=== PATIENT | female | born 1955 | race Caucasian/White ===

== ENCOUNTER 2025-02-01 17:47 | Observation (INO) | payer SELFPAY ==
[2025-02-01] VITALS (7 sets, daily range): BP systolic 109–151; BP diastolic 52–71; PULSE 54–104; RESP 12–19; TEMP 36.6–37; O2SAT 91–100; BMI 33.0
--- NOTE | ~2025-02-01 | CT_ITS ---
Non-contrast Head CT History: Seizure Technique: Axial non-contrast imaging of the brain was performed. Dose reduction technique was used on this scan by utilizing automated exposure control and iterative reconstruction technique. The dose -length product (DLP) was 681.00 mGy-cm. Findings: There is no evidence of intracranial hemorrhage, mass lesion, or acute infarct. There is d iffuse hypodensity throughout the periventricular white matter bilaterally. The ventricles and subar achnoid spaces are normal in size. The calvarium appears normal. The visualized paranasal sinuses a nd mastoid air cells are clear. Left phthisis bulbi noted. Impression: Diffuse chronic appearing white matter disease, likely severe chronic microvascular ischemic change. No acute abnormality evident. Reviewed, dictated and finalized at location . Impression: Diffuse chronic appearing white matter disease, likely severe chronic microvasc ular ischemic change. No acute abnormality evident.
--- NOTE | ~2025-02-01 | XR_ITS ---
Portable chest x-ray Comparison: None Clinical History: Seizure Findings: There is hazy airspace disease left lung base. Right lung clear. Cardiomediastinal silhou ette is enlarged. Bones and soft tissues are unremarkable. Impression: Left basilar atelectasis/edema versus pneumonia. Correlate clinically. Cardiomegaly. Reviewed, dictated and finalized at [facility]. Impression: Left basilar atelectasis/edema versus pneumonia. Correlate clinically. Cardiomegaly.
--- NOTE | 2025-02-01 17:51 | ECG_ITS ---
Test Date: 2025-02-01 18:01:38 Measurements Intervals [place] Rate: 86 P: -27 NM: 208 QRS: 23 QRSD: 118 T: 37 QT: 395 QTc: 473 Interpretive Statements SINUS RHYTHM MODERATE INTRAVENTRICULAR CONDUCTION DELAY [105+ ms QRS DURATION, 80+ ms Q/S IN V1/V2, NO Q AND 60+ ms R IN I/aVL/V5/V6] NONSPECIFIC ST & T-WAVE ABNORMALITY ABNORMAL ECG COMPARED WITH EARLIER TODAY NO DIFFERENCE Electronically Signed On 02-02-2025 08:11:02 CDT by Andrew Block M.D.
[2025-02-01] MEDS: levETIRAcetam 1500MG/NACL100ML 1,500 MG/100 ML BAG 400 MG IVPB (17:54)
[2025-02-01] MEDS: SODIUM CHLORIDE 0.9% IV 1,000 ML 999 ML IV CONT ×2 (17:56→20:44)
--- NOTE | 2025-02-01 17:59 | ECG_ITS ---
Test Date: 2025-02-01 17:48:51 Measurements Intervals [place] Rate: 90 P: 41 [place]: 209 QRS: 22 QRSD: 115 T: 58 QT: 397 QTc: 487 Interpretive Statements SINUS RHYTHM MODERATE INTRAVENTRICULAR CONDUCTION DELAY [105+ ms QRS DURATION, 80+ ms Q/S IN V1/V2, NO Q AND 60+ ms R IN I/aVL/V5/V6] NONSPECIFIC ST & T-WAVE ABNORMALITY ABNORMAL ECG No previous ECG available for comparison Electronically Signed On 02-02-2025 08:10:12 CDT by Andrew Block M.D.
[2025-02-01 18:09] LABS: Hematocrit 35.7 % (37.0-47.0); Hemoglobin 11.1 g/dL (12.0-15.0); Immature Granulocyte Percent A 0.6 % (0-0.5); Lymphocytes Absolute Auto 2.14 K/mm3 (0.9-3.2); Mean Corpuscular HGB Conc 31.1 g/dl (32-36); Mean Corpuscular Hemoglobin 28.2 pg (26-34); Mean Corpuscular Volume 90.8 fl (80-100); Nucleated Red Blood Cells Absolute Auto 0.000 K/mm3 (0.0-0.012); Nucleated Red Blood Cells Perc 0.0 % (0.0-0.2); Platelet Count Result 364 k/mm3 (150-375); Red Blood Count 3.93 M/mm3 (4.2-5.4); White Blood Count 6.6 K/mm3 (4.5-10.0)
[2025-02-01 18:19] LABS: Alanine Aminotransferase 33 U/L (6-35); Albumin Level 4.3 g/dL (3.5-5.1); Alkaline Phosphatase 54 U/L (38-126); Anion Gap 17 mmol/L (4-12); Aspartate Amino Transferase 40 U/L (14-36); Bilirubin,Total 0.3 mg/dL (0.2-1.3); Blood Urea Nitrogen 18 mg/dL (7-17); Calcium 9.0 mg/dL (8.4-10.2); Carbon Dioxide 17 mmol/L (22-30); Chloride 104 mmol/L (98-107); Estimated CRCL calculation 42 ml/min; Estimated Glomerular Filt Rate 46; Glucose 125 mg/dL (65-110); Lipase 120 U/L (23-300); Magnesium 1.9 mg/dL (1.6-2.3); Potassium 3.5 mmol/L (3.4-5.0); Sodium 138 mmol/L (137-145); Total Protein 7.1 g/dL (6.3-8.2)
--- NOTE | 2025-02-01 18:22 | ED.GENADULT ---
HPI - General Adult General Chief complaint: Seizure <Bryant Martinez MD - Last Filed: 02/01/25 19:05> Stated complaint: seizure <Bryant Martinez MD - Last Filed: 02/01/25 19:05> Time Seen by Provider: 02/01/25 17:50 <Bryant Martinez MD - Last Filed: 02/01/25 19:05> History of Present Illness HPI narrative: This is a 69-year-old female with history of seizures presenting for a seizure. Patient was at the [facility] for the last 3 days. She was visiting from [facility]. Patient is 10 taking her lamotrigine 200 mg b.i.d. as directed although she has not taken her nighttime dose today. She had a seizure while in the back of her car with her friends. EMS was called and she received 10 mg of IM Versed with and then 5 mg of IV Versed which eventually aborted her seizure. Patient is now sedated and cannot provide any information. Her friends are present and he stated she has not been using drugs or alcohol. She has been in her normal state of health with no illness. They have said that is been a very long weekend and they are all very tired. <Bryant Martinez MD - Last Filed: 02/01/25 19:05> Related Data Home medications: Home Medications ?Medication ?Instructions ?Recorded ?Confirmed ?Last Taken ?Type lamotrigine 200 mg tablet 200 mg PO BID 02/01/25 02/01/25 01/31/25 History (Lamictal) <Bryant Martinez MD - Last Filed: 02/01/25 19:05> Allergies/adverse reactions: Allergies Allergy/AdvReac Type Severity Reaction Status Date / Time No Known Allergies Allergy Verified 02/01/25 17:54 <Bryant Martinez MD - Last Filed: 02/01/25 19:05> [facility] Past Medical History Medical History: Medical History Anxiety and depression Essential hypertension Seizure disorder <Bryant Martinez MD - Last Filed: 02/01/25 19:05> Surgical History Surgical History: Surgical History History of 3 sections History of laparoscopic cholecystectomy History of enucleation of left eyeball <Bryant Martinez MD - Last Filed: 02/01/25 19:05> Social History Social History: Social History (Updated 02/02/25 @ 01:48 by Greta Garcia DO) Social History: Patient lives in [facility] with her of 11 years. She raised 3 children. She is a retired food crops farm hand. She is a lifelong nonsmoker and has never drink alcohol to excess. She denies illicit substance use. Code status: Full code Surrogate decision maker: Smoking status: Never smoker Second hand tobacco smoke exposure: No Alcohol intake: never Substance use: never Substance use type: does not use Do You Feel Safe in your Home?: Yes Lack of Transportation: No Lack of Food: Never True Current Housing: I Have Housing Concerned About Future Housing: No Difficulty Paying Gas/Electric Bills: No Difficulty Paying for Meds: No Currently Unemployed: No Education: Decline to Answer Difficulty w/ Childcare or Family Care: No Spiritual care concerns: No <Bryant Martinez MD - Last Filed: 02/01/25 19:05> Exam Narrative: APPEARANCE: Response to pain Head: atraumatic. EYES: EOMI, NOSE: Atraumatic NECK: Trachea midline RESPIRATORY: No increased rate of breathing CTAB CARDIOVASCULAR: RRR, no peripheral edema ABDOMINAL: Non-distended soft nontender MUSCULOSKELETAl: No obvious deformities NEURO: Sedated, moving for 4 extremities to pain SKIN:: Warm, dry. Normal color PSYCHIATRIC: Sedated <Bryant Martinez MD - Last Filed: 02/01/25 19:05> Course Course Emergency Course: Patient signed over pending admission to the hospitalist. Patient evaluated in doing well currently still sedated from her Versed doses but no seizure activity. She is responsive. Discussed the case with the hospitalist currently being covered by the midlevel provider Mariel who accepted her to a telemetry monitored bed. Admission orders placed. <Scot Maher MD - Last Filed: 02/02/25 04:24> Vital Signs Vital signs: Vital Signs Pulse Rate 97 02/01/25 17:51 Respiratory Rate 19 02/01/25 17:51 Blood Pressure 109/60 02/01/25 17:51 Pulse Oximetry 91 02/01/25 17:51 Temperature 37.0 C 02/01/25 23:00 Pulse Rate 61 02/01/25 23:00 Respiratory Rate 14 02/01/25 23:00 Blood Pressure 123/58 L 02/01/25 23:00 Pulse Oximetry 96 02/01/25 23:00 Oxygen Delivery Room Air 02/01/25 17:52 <Bryant Martinez MD - Last Filed: 02/01/25 19:05> Vital Signs Pulse Rate 97 02/01/25 17:51 Respiratory Rate 19 02/01/25 17:51 Blood Pressure 109/60 02/01/25 17:51 Pulse Oximetry 91 02/01/25 17:51 Temperature 37.0 C 02/01/25 23:00 Pulse Rate 61 02/01/25 23:00 Respiratory Rate 14 02/01/25 23:00 Blood Pressure 123/58 L 02/01/25 23:00 Pulse Oximetry 96 02/01/25 23:00 Oxygen Delivery Room Air 02/01/25 17:52 <Scot Maher MD - Last Filed: 02/02/25 04:24> Medical Decision Making MDM Narrative Medical decision making narrative: -Course: 69-year-old female with history of seizures presenting for a seizure. She received total of 15 mg Versed from EMS. I expect the patient to be sedated for quite some time. Patient was given 1500 mg of Keppra and 1000ml normal saline. Workup significant for urinary tract infection she has been started on ceftriaxone. Patient will be placed in observation to give her time to metabolize the Versed and return to her baseline mental status. -DDX includes but is not limited to: Breakthrough seizure, medication noncompliance, physical exhaustion <Bryant Martinez MD - Last Filed: 02/01/25 19:05> Vital Signs Vital Signs: Vital Signs Pulse Rate 97 02/01/25 17:51 Respiratory Rate 19 02/01/25 17:51 Blood Pressure 109/60 02/01/25 17:51 Pulse Oximetry 91 02/01/25 17:51 Temperature 37.0 C 02/01/25 23:00 Pulse Rate 61 02/01/25 23:00 Respiratory Rate 14 02/01/25 23:00 Blood Pressure 123/58 L 02/01/25 23:00 Pulse Oximetry 96 02/01/25 23:00 Oxygen Delivery Room Air 02/01/25 17:52 <Bryant Martinez MD - Last Filed: 02/01/25 19:05> Vital Signs Pulse Rate 97 02/01/25 17:51 Respiratory Rate 19 02/01/25 17:51 Blood Pressure 109/60 02/01/25 17:51 Pulse Oximetry 91 02/01/25 17:51 Temperature 37.0 C 02/01/25 23:00 Pulse Rate 61 02/01/25 23:00 Respiratory Rate 14 02/01/25 23:00 Blood Pressure 123/58 L 02/01/25 23:00 Pulse Oximetry 96 02/01/25 23:00 Oxygen Delivery Room Air 02/01/25 17:52 <Scot Maher MD - Last Filed: 02/02/25 04:24> Lab Data Result diagrams: 02/01/25 17:59 02/01/25 17:59 <Bryant Martinez MD - Last Filed: 02/01/25 19:05> Labs: Lab Results 02/01/25 02/01/25 02/01/25 Range/Units 17:54 17:59 18:02 WBC 6.6 (4.5-10.0) K/mm3 RBC 3.93 L (4.2-5.4) M/mm3 Hgb 11.1 L (12.0-15.0) g/dL Hct 35.7 L (37.0-47.0) % MCV 90.8 (80-100) fl MCH 28.2 (26-34) pg MCHC 31.1 L (32-36) g/dl RDW 13.7 (11.5-14.5) % Plt Count 364 (150-375) k/mm3 MPV 8.5 (7.4-10.4) fl Immature Gran % (Auto) 0.6 H (0-0.5) % Neut % (Auto) 57.2 (45.5-73.1) % Lymph % (Auto) 32.4 (18.3-44.2) % Teller % (Auto) 6.7 (2.6-8.5) % Eos % (Auto) 2.0 (0-4.4) % Baso % (Auto) 1.1 (0.2-1.2) % Lymph # (Auto) 2.14 (0.9-3.2) K/mm3 Teller # (Auto) 0.4 (0.1-0.6) K/mm3 Eos # (Auto) 0.1 (0-0.3) K/mm3 Baso # (Auto) 0.1 (0.0-0.1) K/mm3 Abs Immat Gran (auto) 0.04 H (0.00-0.031) K/mm3 Absolute Neuts (auto) 3.8 (1.3-6.7) K/mm3 Absolute Nucleated RBC 0.000 (0.0-0.012) K/mm3 Nucleated RBC % 0.0 (0.0-0.2) % Sodium 138 (137-145) mmol/L Potassium 3.5 (3.4-5.0) mmol/L Chloride 104 (98-107) mmol/L Carbon Dioxide 17 L (22-30) mmol/L Anion Gap 17 H (4-12) mmol/L BUN 18 H (7-17) mg/dL Creatinine 1.17 H (0.7-1.0) mg/dL Estim Creat Clear Calc 42 ml/min Estimated GFR 46 L (59 - ) Glucose 125 H (65-110) mg/dL POC Capillary Glucose 136 H (65-105) mg/dl Lactic Acid 6.4 H* (0.7-2.0) mmol/L Calcium 9.0 (8.4-10.2) mg/dL Magnesium 1.9 (1.6-2.3) mg/dL Total Bilirubin 0.3 (0.2-1.3) mg/dL AST 40 H (14-36) U/L ALT 33 (6-35) U/L Alkaline Phosphatase 54 (38-126) U/L Total Protein 7.1 (6.3-8.2) g/dL Albumin 4.3 (3.5-5.1) g/dL Lipase 120 (23-300) U/L Urine Color Dark yellow (Yellow) Urine Appearance Turbid H (Clear) Urine pH 5.0 (5.0-9.0) Ur Specific [place] 1.010 (1.001-1.035) Urine Protein 1+ H (Negative) mg/dL Urine Glucose (UA) Negative (Negative) mg/dL Urine Ketones Negative (Negative) mg/dL Ur Blood (Man) Trace (Negative) Urine Nitrate Positive H (Negative) Urine Bilirubin Negative (Negative) Urine Urobilinogen 0.2 (<2.0) mg/dL Add Ur Microanalysis Reviewed Leukocyte Esterase Rfl 3+ H (Negative) GURINDRE/UL Urine RBC 0-2 (0-2) /hpf Urine WBC >100 H (0-3) /hpf Urine WBC Clumps Present H (None) /HPF Ur Squamous Epith Cells None seen (Few) /hpf Urine Bacteria Rare /hpf Urine Casts 6-10 Urine Opiates Screen Negative (Negative) Urine Methadone Screen Negative (Negative) Ur Barbiturates Screen Negative (Negative) Ur Phencyclidine Scrn Negative (Negative) Ur Amphetamine Screen Negative (Negative) U Benzodiazepines Scrn Positive A (Negative) Urine Cocaine Screen Negative (Negative) U Cannabinoids Screen Negative (Negative) Ethyl Alcohol < 10 (<10) mg/dL Influenza A (RT-PCR) Negative (Negative) Influenza B (RT-PCR) Negative (Negative) RSV (RT-PCR) Negative (Negative) SARS-CoV-2 RNA (RT-PCR) Negative (Negative) <Bryant Martinez MD - Last Filed: 02/01/25 19:05> Lab Results 02/01/25 02/01/25 02/01/25 Range/Units 17:54 17:59 18:02 WBC 6.6 (4.5-10.0) K/mm3 RBC 3.93 L (4.2-5.4) M/mm3 Hgb 11.1 L (12.0-15.0) g/dL Hct 35.7 L (37.0-47.0) % MCV 90.8 (80-100) fl MCH 28.2 (26-34) pg MCHC 31.1 L (32-36) g/dl RDW 13.7 (11.5-14.5) % Plt Count 364 (150-375) k/mm3 MPV 8.5 (7.4-10.4) fl Immature Gran % (Auto) 0.6 H (0-0.5) % Neut % (Auto) 57.2 (45.5-73.1) % Lymph % (Auto) 32.4 (18.3-44.2) % Teller % (Auto) 6.7 (2.6-8.5) % Eos % (Auto) 2.0 (0-4.4) % Baso % (Auto) 1.1 (0.2-1.2) % Lymph # (Auto) 2.14 (0.9-3.2) K/mm3 Teller # (Auto) 0.4 (0.1-0.6) K/mm3 Eos # (Auto) 0.1 (0-0.3) K/mm3 Baso # (Auto) 0.1 (0.0-0.1) K/mm3 Abs Immat Gran (auto) 0.04 H (0.00-0.031) K/mm3 Absolute Neuts (auto) 3.8 (1.3-6.7) K/mm3 Absolute Nucleated RBC 0.000 (0.0-0.012) K/mm3 Nucleated RBC % 0.0 (0.0-0.2) % Sodium 138 (137-145) mmol/L Potassium 3.5 (3.4-5.0) mmol/L Chloride 104 (98-107) mmol/L Carbon Dioxide 17 L (22-30) mmol/L Anion Gap 17 H (4-12) mmol/L BUN 18 H (7-17) mg/dL Creatinine 1.17 H (0.7-1.0) mg/dL Estim Creat Clear Calc 42 ml/min Estimated GFR 46 L (59 - ) Glucose 125 H (65-110) mg/dL POC Capillary Glucose 136 H (65-105) mg/dl Lactic Acid 6.4 H* (0.7-2.0) mmol/L Calcium 9.0 (8.4-10.2) mg/dL Magnesium 1.9 (1.6-2.3) mg/dL Total Bilirubin 0.3 (0.2-1.3) mg/dL AST 40 H (14-36) U/L ALT 33 (6-35) U/L Alkaline Phosphatase 54 (38-126) U/L Total Protein 7.1 (6.3-8.2) g/dL Albumin 4.3 (3.5-5.1) g/dL Lipase 120 (23-300) U/L Urine Color Dark yellow (Yellow) Urine Appearance Turbid H (Clear) Urine pH 5.0 (5.0-9.0) Ur Specific [place] 1.010 (1.001-1.035) Urine Protein 1+ H (Negative) mg/dL Urine Glucose (UA) Negative (Negative) mg/dL Urine Ketones Negative (Negative) mg/dL Ur Blood (Man) Trace (Negative) Urine Nitrate Positive H (Negative) Urine Bilirubin Negative (Negative) Urine Urobilinogen 0.2 (<2.0) mg/dL Add Ur Microanalysis Reviewed Leukocyte Esterase Rfl 3+ H (Negative) GURINDER/UL Urine RBC 0-2 (0-2) /hpf Urine WBC >100 H (0-3) /hpf Urine WBC Clumps Present H (None) /HPF Ur Squamous Epith Cells None seen (Few) /hpf Urine Bacteria Rare /hpf Urine Casts 6-10 Urine Opiates Screen Negative (Negative) Urine Methadone Screen Negative (Negative) Ur Barbiturates Screen Negative (Negative) Ur Phencyclidine Scrn Negative (Negative) Ur Amphetamine Screen Negative (Negative) U Benzodiazepines Scrn Positive A (Negative) Urine Cocaine Screen Negative (Negative) U Cannabinoids Screen Negative (Negative) Ethyl Alcohol < 10 (<10) mg/dL Influenza A (RT-PCR) Negative (Negative) Influenza B (RT-PCR) Negative (Negative) RSV (RT-PCR) Negative (Negative) SARS-CoV-2 RNA (RT-PCR) Negative (Negative) <Scot Maher MD - Last Filed: 02/02/25 04:24> Discharge Plan Discharge Clinical Impression: Breakthrough seizure, Acute UTI <Bryant Martinez MD - Last Filed: 02/01/25 19:05> Patient Disposition: Home <Bryant Martinez MD - Last Filed: 02/01/25 19:05> Condition: Stable <Bryant Martinez MD - Last Filed: 02/01/25 19:05>
[2025-02-01 18:30] LABS: Add Urine Microscopic? YES; Appearance Urine Turbid (Clear); Glucose Urine UA Negative (Negative); Leukocyte Esterase Ur 3+ LEU/UL (Negative); Need Manual Microscopic Reviewed; Nitrate Urine Positive (Negative); Specific Grav Ur 1.010 (1.001-1.035)
[2025-02-01 18:35] LABS: Cannabinoid Screen Urine Negative (Negative)
[2025-02-01 18:46] LABS: Influenza A QL RT-PCR Negative (Negative); Influenza B QL RT-PCR Negative (Negative); RSV RNA, RT-PCR Negative (Negative); SARS-CoV-2 RNA PCR Negative (Negative)
--- OUTSIDE RECORDS SUMMARY | 2025-02-01 19:38 | XMS_ITS | Continuity of Care Document ---
Author Organization [facility] Address [address] [place] [address] Phone Care Team Providers Care Dry Cleaning Attendant Name Role Phone Richard Rios MD, Rickey Unavailable Unavailabl e Allergies, Adverse Reactions, Alerts Substance Reaction Status Criticality No Known Allergies Active No Inform ation Medications Medication Instructions Dosage Effective Dates (start - stop) Status Comments Aptiom 800 mg tablet take 1 tablet by or al route every day 800 MG - Active Keppra 500 mg tablet take 1 tablet by or al route 2 times every day 500 MG - Active Procedures Procedure Date Med record copy admin Med record copy per page Advance Directives Directive Yes / No Effective Date File Name No Information Encounters Encounter Description Practice Location Reason(s) For Visit Diagnoses Date Provider [facility], [address] , [place], [address], tel:[phone] [facility] No Information Richard Lang. [address] , [place], [place], [id number], [place]. tel:[phone] [facility], [address] , [place], [address], [place] tel:[phone] [facility] Epilepsy, unspecified, not intractable, without status epilepticusAnt iconvulsant-in duced dizziness ^Side effects of treatment, initial encounter Richard Lang. [address] , [place], [place], [id number], [place]. tel:[phone] [facility], [address] [facility], [place], [address], tel:[phone] [facility] Epilepsy, unspecified, not intractable, without status epilepticusAnt iconvulsant-in duced dizziness ^Dizziness and giddiness Richard Lang. [address] [facility], [place], [place], [id number], [place]. tel:[phone] [facility], [address] [facility], [place], [place], [facility], tel:[phone] [facility] Epilepsy, unspecified, without mention of intractable epilepsy Richard Lang. [address] [place], [place], [address] [place] [address], . tel:[phone] [facility], [address] [facility], [place], [place], [facility], tel:[phone] [facility] Epilepsy, unspecified, without mention of intractable epilepsy Richard Lang. [address] [facility], [place], [place], [address] [place] [address], . tel:[phone] [facility], [facility] [address] [place], [place], [facility], tel:[phone] [facility] Epilepsy, unspecified, without mention of intractable epilepsy Jaymie Montenegro. [address] [facility], [address], [place], [place], [facility], . tel:[phone] Family History Family Member Type Diagnosis Age At Onset Problem (finding) Family history of seizu re disorder Problem (finding) Family history of Cance r Payers Payer name Insurance type Covered libertarian ID Authoriza tion(s) No Information Social History Type Description Quantity Date Captured Comments Sex Female Smoking Status No Information Chief Complaint And Reason For Visit No Information Plan Of Treatment Date Type Action Status Patient Education Seizure in Adults: Afte r Your Visit completed Patient Education Seizure in Adults: Afte r Your Visit completed History Of Present Illness Encounter Date Complaint History Of Prese nt Illness No Information Instructions Date Instruction Additional Infor mation No Information Assessments Type Assessment Date No Information
[2025-02-01] MEDS: cefTRIAXone 1 GM in SODIUM CHLORIDE 0.9% IV 50 ML 100 ML IVPB (19:43)
[2025-02-01] MEDS: LACTATED RINGERS 1,000 ML 125 ML IV CONT (20:49)
--- NOTE | 2025-02-01 22:37 | ADMGEN ---
This patient, Genie Elmore, was admitted to Medical Room 246-01 with a witnessed seizure, duration of 10-15 minutes. Patient/family oriented to hospital policies and general routines including ID bracelet, bed and alarms, visiting hours, pain management, procedures, bathroom and other care routines, personal items, smoking policy, room service/diet, and visiting hours. Information on how to activate the Rapid Response Team has been discussed. Patient/Family are encouraged to report perceived risks to care and to ask questions if they do not understand what they are told or what they should do.
--- NOTE | 2025-02-01 22:52 | PM.IMHP ---
H&P: HPI History of Present Illness Date/Time: 02/01/25 22:52 Chief Complaint: Seizure Narrative: 69-year-old female with a past medical history of seizure disorder who presented to the ER after having a witnessed seizure while riding in the back of the car. Patient was added L this convention for the past 3 days and is in the area visiting from [facility]. Patient takes lamotrigine 200 mg p.o. b.i.d. for seizures. EMS was called and patient received 10 mg of IM Versed and then an IV was placed after which time she received another 5 mg of IV Versed. On arrival to the ER the patient was sedated and could not provide any information. Patient has not been using any drugs and her friends denied patient drinking alcohol during their trip. Patient's alcohol level was negative in the ER and the patient's urine drug screen was only positive for benzodiazepines which she received in route to the hospital. The patient's friends report that they had had a very long weekend and they are all exhausted. The patient states that she does not know the names of her antihypertensives. At the time my evaluation she arouses easily to verbal stimuli but is not the best historian. She has had seizures since 1996. She had 1 seizure that was bad enough 1 time that she fell and poked her eye out with her home thumb nail. She denies any headaches, fevers, chills, cough, congestion or urinary symptoms at the time of my evaluation. The patient reported to nursing staff that she has been depressed recently. She has been having fleeting thoughts of self-harm but has no plan. She is aware that she is depressed but is not discuss this with her primary care provider. Source of information is patient who is a relatively poor historian and ER physician report/record and nursing report. No external records or past medical records available for my review. There is no contact information on the patient's family or friends available to provide any other history. EMS records are not yet in the system for my review. Review of Systems Review of Systems: Twelve point review of systems attempted but somewhat limited due to poor patient cooperation. [facility] Past Medical History Medical History Anxiety and depression Essential hypertension Seizure disorder Surgical History Surgical History History of 3 sections History of laparoscopic cholecystectomy History of enucleation of left eyeball Social History Social History (Updated 02/02/25 @ 01:48 by Greta Garcia DO) Social History: Patient lives in [facility] with her of 11 years. She raised 3 children. She is a retired hi low truck driver. She is a lifelong nonsmoker and has never drink alcohol to excess. She denies illicit substance use. Code status: Full code Surrogate decision maker: Smoking status: Never smoker Second hand tobacco smoke exposure: No Alcohol intake: never Substance use: never Substance use type: does not use Do You Feel Safe in your Home?: Yes Lack of Transportation: No Lack of Food: Never True Current Housing: I Have Housing Concerned About Future Housing: No Difficulty Paying Gas/Electric Bills: No Difficulty Paying for Meds: No Currently Unemployed: No Education: Decline to Answer Difficulty w/ Childcare or Family Care: No Spiritual care concerns: No Meds Home Medications and Allergies Home Medications ?Medication ?Instructions ?Recorded ?Confirmed ?Type lamotrigine 200 mg tablet 200 mg PO BID 02/01/25 02/01/25 History (Lamictal) Allergies Allergy/AdvReac Type Severity Reaction Status Date / Time No Known Allergies Allergy Verified 02/01/25 17:54 Vital Signs Vital Signs - 24 hr 02/01/25 17:51 02/01/25 17:52 02/01/25 17:56 Temperature Pulse Rate 97 104 H 95 Respiratory Rate 19 19 Blood Pressure 109/60 109/60 Pulse Oximetry 91 91 Oxygen Delivery Room Air 02/01/25 19:41 02/01/25 20:45 02/01/25 21:52 Temperature 97.8 F 98.4 F Pulse Rate 54 L 60 62 Respiratory Rate 12 13 Blood Pressure 146/70 H 151/52 H 112/71 Pulse Oximetry 100 97 Oxygen Delivery Exam Narrative: Weight 84.7 kg BMI 33.1 Const: Other: Appears older than stated age, well-developed well-nourished, no acute distress HENMT: Other: Edentulous upper and lower jaw, mucous membranes are tacky, no oral pharyngeal erythema, no evidence of oral injury, head is normocephalic atraumatic Eyes: Other: Right pupil is reactive and of normal size, no scleral icterus or conjunctival pallor, left eye is a prosthetic Neck: Other: No JVD, no lymphadenopathy Resp: Other: Clear to auscultation bilaterally, no increased work of breathing Cardio: Other: Regular rate, regular rhythm, 2+ bilateral radial pedal pulses GI: Other: Soft, nontender, nondistended, positive bowel sounds Skin: Other: No bruising, no pallor Neuro: Other: Easily arouses to verbal stimuli, alert and oriented to person, fact that she is in the hospital, year and name of the current president she thought the month was May. Speech is clear and fluent, cranial nerves 2-12 grossly intact. No gross motor deficits noted. Extrem: Other: No clubbing, cyanosis or edema Psych: Other: Flat affect, calm but not interested in providing information, poor insight H&P: Results Labs Labs: Laboratory Tests 02/01/25 17:59 02/01/25 17:59 02/01/25 02/01/25 02/01/25 17:54 17:59 18:02 WBC 6.6 RBC 3.93 L Hgb 11.1 L Hct 35.7 L MCV 90.8 MCH 28.2 MCHC 31.1 L RDW 13.7 Plt Count 364 MPV 8.5 Immature Gran % (Auto) 0.6 H Neut % (Auto) 57.2 Lymph % (Auto) 32.4 [place] % (Auto) 6.7 Eos % (Auto) 2.0 Baso % (Auto) 1.1 Lymph # (Auto) 2.14 [place] # (Auto) 0.4 Eos # (Auto) 0.1 Baso # (Auto) 0.1 Abs Immat Gran (auto) 0.04 H Absolute Neuts (auto) 3.8 Absolute Nucleated RBC 0.000 Nucleated RBC % 0.0 Sodium 138 Potassium 3.5 Chloride 104 Carbon Dioxide 17 L Anion Gap 17 H BUN 18 H Creatinine 1.17 H Estim Creat Clear Calc 42 Estimated GFR 46 L Glucose 125 H POC Capillary Glucose 136 H Lactic Acid 6.4 H* Calcium 9.0 Magnesium 1.9 Total Bilirubin 0.3 AST 40 H ALT 33 Alkaline Phosphatase 54 Total Protein 7.1 Albumin 4.3 Lipase 120 Urine Color Dark yellow Urine Appearance Turbid H Urine pH 5.0 Ur Specific [place] 1.010 Urine Protein 1+ H Urine Glucose (UA) Negative Urine Ketones Negative Ur Blood (Man) Trace Urine Nitrate Positive H Urine Bilirubin Negative Urine Urobilinogen 0.2 Add Ur Microanalysis Reviewed Leukocyte Esterase Rfl 3+ H Urine RBC 0-2 Urine WBC >100 H Urine WBC Clumps Present H Ur Squamous Epith Cells None seen Urine Bacteria Rare Urine Casts 6-10 Urine Opiates Screen Negative Urine Methadone Screen Negative Ur Barbiturates Screen Negative Ur Phencyclidine Scrn Negative Ur Amphetamine Screen Negative U Benzodiazepines Scrn Positive A Urine Cocaine Screen Negative U Cannabinoids Screen Negative Ethyl Alcohol < 10 Influenza A (RT-PCR) Negative Influenza B (RT-PCR) Negative RSV (RT-PCR) Negative SARS-CoV-2 RNA (RT-PCR) Negative 02/01/25 20:38 WBC RBC Hgb Hct MCV MCH MCHC RDW Plt Count MPV Immature Gran % (Auto) Neut % (Auto) Lymph % (Auto) [place] % (Auto) Eos % (Auto) Baso % (Auto) Lymph # (Auto) [place] # (Auto) Eos # (Auto) Baso # (Auto) Abs Immat Gran (auto) Absolute Neuts (auto) Absolute Nucleated RBC Nucleated RBC % Sodium Potassium Chloride Carbon Dioxide Anion Gap BUN Creatinine Estim Creat Clear Calc Estimated GFR Glucose POC Capillary Glucose Lactic Acid 1.3 Calcium Magnesium Total Bilirubin AST ALT Alkaline Phosphatase Total Protein Albumin Lipase Urine Color Urine Appearance Urine pH Ur Specific [place] Urine Protein Urine Glucose (UA) Urine Ketones Ur Blood (Man) Urine Nitrate Urine Bilirubin Urine Urobilinogen Add Ur Microanalysis Leukocyte Esterase Rfl Urine RBC Urine WBC Urine WBC Clumps Ur Squamous Epith Cells Urine Bacteria Urine Casts Urine Opiates Screen Urine Methadone Screen Ur Barbiturates Screen Ur Phencyclidine Scrn Ur Amphetamine Screen U Benzodiazepines Scrn Urine Cocaine Screen U Cannabinoids Screen Ethyl Alcohol Influenza A (RT-PCR) Influenza B (RT-PCR) RSV (RT-PCR) SARS-CoV-2 RNA (RT-PCR) Impressions Head CT 02/01/25 18:50 Impression: Diffuse chronic appearing white matter disease, likely severe chronic microvascular ischemic change. No acute abnormality evident. Chest X-Ray 02/01/25 19:09 Impression: Left basilar atelectasis/edema versus pneumonia. Correlate clinically. Cardiomegaly. EKG: Normal sinus rhythm rate 86, moderate intraventricular conduction delay, nonspecific ST and T-wave abnormality, QTC 473 All imaging and EKGs personally reviewed and interpreted. And unless stated otherwise agree with radiologic and cardiology interpretation. Assessment and Plan Assessment and plan (1) Breakthrough seizure: Code(s): G40.919 - Epilepsy, unspecified, intractable, without status epilepticus Status: Acute (2) Abnormal urinalysis: Code(s): R82.90 - Unspecified abnormal findings in urine Status: Acute (3) Acute kidney injury: Code(s): N17.9 - Acute kidney failure, unspecified Status: Acute (4) Major depressive disorder with current active episode: Qualifiers: Major depression recurrence: unspecified whether recurrent Major depression episode severity: moderate Qualified Code(s): F32.1 - Major depressive disorder, single episode, moderate Code(s): F32.9 - Major depressive disorder, single episode, unspecified Status: Acute Plan Patient had breakthrough seizure likely due to a missed dose of her seizure medication and complicated by decreased sleep during her recent travel. Will resume the patient's home lamotrigine with the 1st dose now. Patient was admitted for over-sedation following Versed use. Will monitor neuro status closely and patient has been placed on seizure precautions. Patient did have significant lactic acidosis that resolved after only 1 L fluid this is likely due her acute seizure. Patient does have an abnormal urinalysis but no evidence of fever and denied any acute urinary symptoms. This is been more likely to be asymptomatic bacteriuria. Will leave the patient on antibiotic therapy unti re-evaluation may be the patient would be more motivated to provide history in the morning when she is more awake. Will repeat CBC in a.m.. Patient denies history of prior kidney disease but creatinine is elevated. She may have some component of acute kidney injury. Patient received 1 L fluid bolus in the ER. Will given additional 1 L fluid bolus and continue normal saline 100 mL an hour for an additional L. Will follow with repeat BMP in a.m. and monitor urine output. Patient is having depressive symptoms with fleeting thoughts of suicide but she denies any active suicidal ideation at the moment or plan She would benefit from antidepressant although I am reluctant to start this in the acute setting since will not bili follow-up with her since she is not from the area. She does have a history of hypertension but does not know what her medications are currently she is currently normotensive. Will monitor routine vital signs. Patient has been admitted as observation status. MEDICAL DECISION MAKING NARRATIVE -Spoke with the ED provider in detail regarding patient's evaluation, workup and management -Patient seen and examined at bedside -Collaborated with patient's nurse at the bedside in detail and addressed all concerns -Labs, electrolytes, radiology, investigations and test results reviewed -ED/Consult/Nursing/Ancilliary notes on the chart reviewed and appreciated -Spoke with patient at bedside and questions were answered. Quality VTE Prophylaxis VTE prophylaxis: pharmacologic ordered (Lovenox 40 mg subQ daily.) Hospitalist MIPS Advance Care Plan I have confirmed that the patient's Advanced Care Plan is present, code status is documented, or surrogate decision maker is listed in patient medical record.: Yes Medication Reconciliation I have utilized all available resources to obtain, update and review the patients current medications (includes all prescriptions, OTC, herbals, cannabis, and nutritional supplements).: Yes
[2025-02-02] VITALS: PULSE 70
[2025-02-02 04:00] VITALS: PULSE 67
[2025-02-02 04:54] LABS: Hematocrit 32.7 % (37.0-47.0); Hemoglobin 10.2 g/dL (12.0-15.0); Immature Granulocyte Percent A 0.3 % (0-0.5); Lymphocytes Absolute Auto 1.71 K/mm3 (0.9-3.2); Mean Corpuscular HGB Conc 31.2 g/dl (32-36); Mean Corpuscular Hemoglobin 28.2 pg (26-34); Mean Corpuscular Volume 90.3 fl (80-100); Nucleated Red Blood Cells Absolute Auto 0.000 K/mm3 (0.0-0.012); Nucleated Red Blood Cells Perc 0.0 % (0.0-0.2); Platelet Count Result 316 k/mm3 (150-375); Red Blood Count 3.62 M/mm3 (4.2-5.4); White Blood Count 7.1 K/mm3 (4.5-10.0)
[2025-02-02 05:19] LABS: Anion Gap 5 mmol/L (4-12); Blood Urea Nitrogen 14 mg/dL (7-17); Calcium 8.7 mg/dL (8.4-10.2); Carbon Dioxide 25 mmol/L (22-30); Chloride 105 mmol/L (98-107); Estimated CRCL calculation 51 ml/min; Estimated Glomerular Filt Rate 59; Glucose 85 mg/dL (65-110); Potassium 3.8 mmol/L (3.4-5.0); Sodium 135 mmol/L (137-145)
[2025-02-02 06:00] VITALS: BP 119/74; PULSE 65; RESP 14; TEMP 36.7; O2SAT 97
--- NOTE | 2025-02-02 07:13 | P.PNIM_ITS ---
Progress Note: A&P Assessment and Plan (1) Breakthrough seizure: Code(s): G40.919 - Epilepsy, unspecified, intractable, without status epilepticus Status: Acute (2) Abnormal urinalysis: Code(s): R82.90 - Unspecified abnormal findings in urine Status: Acute (3) Acute kidney injury: Code(s): N17.9 - Acute kidney failure, unspecified Status: Acute (4) Major depressive disorder with current active episode: Qualifiers: Major depression recurrence: unspecified whether recurrent Major depression episode severity: moderate Qualified Code(s): F32.1 - Major d epressive disorder, single episode, moderate Code(s): F32.9 - Major depressive disorder, single episode, unspecified Status: Acute Subjective Date/time seen: 02/02/25 07:13 Interval history: 69-year-old female with a past medical history of seizure disorder who presented to the ER after having a witnessed seizure while riding in the back of the car. 02/02/2025 Review of Systems Review of Systems: Twelve point review of systems attempted but somewhat limited due to poor patient cooperation. Exam Narrative: Weight 84.7 kg BMI 33.1 Const: Other: Appears older than stated age, well-developed well-nourished, no acute distress HENMT: Other: Edentulous upper and lower jaw, mucous membranes are tacky, no oral pharyngeal erythema, no evidence of oral injury, head is normocephalic atraumatic Eyes: Other: Right pupil is reactive and of normal size, no scleral icterus or conjunctival pallor, left eye is a prosthetic Neck: Other: No JVD, no lymphadenopathy Resp: Other: Clear to auscultation bilaterally, no increased work of breathing Cardio: Other: Regular rate, regular rhythm, 2+ bilateral radial pedal pulses GI: Other: Soft, nontender, nondistended, positive bowel sounds Skin: Other: No bruising, no pallor Neuro: Other: Easily arouses to verbal stimuli, alert and oriented to person, fact that she is in the hospital, year and name of the current president she thought the month was May. Speech is clear and fluent, cranial nerves 2-12 grossly intact. No gross motor deficits noted. Extrem: Other: No clubbing, cyanosis or edema Psych: Other: Flat affect, calm but not interested in providing information, poor insight Objective Data Vital Signs Vital Signs: Vital Signs - 24 hr 02/01/25 17:51 02/01/25 17:52 02/01/25 17:56 Temperature Pulse Rate 97 104 H 95 Respiratory Rate 19 19 Blood Pressure 109/60 109/60 Pulse Oximetry 91 91 Oxygen Delivery Room Air 02/01/25 19:41 02/01/25 20:45 02/01/25 21:52 Temperature 97.8 F 98.4 F Pulse Rate 54 L 60 62 Respiratory Rate 12 13 Blood Pressure 146/70 H 151/52 H 112/71 Pulse Oximetry 100 97 Oxygen Delivery 02/01/25 23:00 02/02/25 00:00 02/02/25 04:00 Temperature 98.6 F Pulse Rate 61 70 67 Respiratory Rate 14 Blood Pressure 123/58 L Pulse Oximetry 96 Oxygen Delivery 02/02/25 06:00 Temperature 98.1 F Pulse Rate 65 Respiratory Rate 14 Blood Pressure 119/74 Pulse Oximetry 97 Oxygen Delivery Intake/Output Intake/Output: Intake & Output 01/30/25 01/31/25 02/01/25 02/02/25 23:59 23:59 23:59 23:59 Intake Total 2150 Output Total 400 1650 Balance 1750 -1650 Meds/Results Medications: Active Medications Generic Name Dose Route Start Last Admin Trade Name Freq PRN Reason Stop Dose Admin Acetaminophen 650 mg 02/01/25 19:24 Acetaminophen 325 Mg Tablet PO Q4H PRN Mild Pain (1-3) or Fever Aspirin 81 mg 02/02/25 09:00 Aspirin 81 Mg Enteric Tablet PO QAM [facility] Enoxaparin Sodium 40 mg 02/02/25 09:00 Enoxaparin 40 Mg/0.4 Ml Syringe SUB-Q DAILY [facility] Ceftriaxone Sodium 1 gm/ 50 mls @ 100 mls/hr 02/02/25 18:00 Sodium Chloride IVPB Q24H [facility] Lactated Ringer's 1,000 mls @ 125 mls/hr 02/01/25 19:25 02/02/25 05:54 Lr - Lactated Ringers Iv IV CONT Not Given .Q8H JEREMY Lamotrigine 200 mg 02/02/25 01:45 02/02/25 01:55 Lamotrigine 100 Mg Tablet PO 200 mg Q12HR JEREMY Administration Ondansetron HCl 4 mg 02/01/25 19:24 Ondansetron Inj 4 Mg/2 Ml Vial IV PUSH Q4H PRN Nausea Radiology Results: ITS Impressions Head CT 02/01/25 18:50 Impression: Diffuse chronic appearing white matter disease, likely severe chronic microvascular ischemic change. No acute abnormality evident. Chest X-Ray 02/01/25 19:09 Impression: Left basilar atelectasis/edema versus pneumonia. Correlate clinically. Cardiomegaly. Labs Labs: Laboratory Results - last 24 hr 02/01/25 02/01/25 02/01/25 17:54 17:59 18:02 WBC 6.6 RBC 3.93 L Hgb 11.1 L Hct 35.7 L MCV 90.8 MCH 28.2 MCHC 31.1 L RDW 13.7 Plt Count 364 MPV 8.5 Immature Gran % (Auto) 0.6 H Neut % (Auto) 57.2 Lymph % (Auto) 32.4 [place] % (Auto) 6.7 Eos % (Auto) 2.0 Baso % (Auto) 1.1 Lymph # (Auto) 2.14 [place] # (Auto) 0.4 Eos # (Auto) 0.1 Baso # (Auto) 0.1 Abs Immat Gran (auto) 0.04 H Absolute Neuts (auto) 3.8 Absolute Nucleated RBC 0.000 Nucleated RBC % 0.0 Sodium 138 Potassium 3.5 Chloride 104 Carbon Dioxide 17 L Anion Gap 17 H BUN 18 H Creatinine 1.17 H Estim Creat Clear Calc 42 Estimated GFR 46 L Glucose 125 H POC Capillary Glucose 136 H Lactic Acid 6.4 H* Calcium 9.0 Magnesium 1.9 Total Bilirubin 0.3 AST 40 H ALT 33 Alkaline Phosphatase 54 Total Protein 7.1 Albumin 4.3 Lipase 120 Urine Color Dark yellow Urine Appearance Turbid H Urine pH 5.0 Ur Specific [place] 1.010 Urine Protein 1+ H Urine Glucose (UA) Negative Urine Ketones Negative Ur Blood (Man) Trace Urine Nitrate Positive H Urine Bilirubin Negative Urine Urobilinogen 0.2 Add Ur Microanalysis Reviewed Leukocyte Esterase Rfl 3+ H Urine RBC 0-2 Urine WBC >100 H Urine WBC Clumps Present H Ur Squamous Epith Cells None seen Urine Bacteria Rare Urine Casts 6-10 Urine Opiates Screen Negative Urine Methadone Screen Negative Ur Barbiturates Screen Negative Ur Phencyclidine Scrn Negative Ur Amphetamine Screen Negative U Benzodiazepines Scrn Positive A Urine Cocaine Screen Negative U Cannabinoids Screen Negative Ethyl Alcohol < 10 Influenza A (RT-PCR) Negative Influenza B (RT-PCR) Negative RSV (RT-PCR) Negative SARS-CoV-2 RNA (RT-PCR) Negative 02/01/25 02/02/25 20:38 04:40 WBC 7.1 RBC 3.62 L Hgb 10.2 L Hct 32.7 L MCV 90.3 MCH 28.2 MCHC 31.2 L RDW 13.6 Plt Count 316 MPV 8.5 Immature Gran % (Auto) 0.3 Neut % (Auto) 67.6 Lymph % (Auto) 24.2 [place] % (Auto) 6.2 Eos % (Auto) 1.1 Baso % (Auto) 0.6 Lymph # (Auto) 1.71 [place] # (Auto) 0.4 Eos # (Auto) 0.1 Baso # (Auto) 0.0 Abs Immat Gran (auto) 0.02 Absolute Neuts (auto) 4.8 Absolute Nucleated RBC 0.000 Nucleated RBC % 0.0 Sodium 135 L Potassium 3.8 Chloride 105 Carbon Dioxide 25 Anion Gap 5 BUN 14 Creatinine 0.94 Estim Creat Clear Calc 51 Estimated GFR 59 Glucose 85 POC Capillary Glucose Lactic Acid 1.3 Calcium 8.7 Magnesium Total Bilirubin AST ALT Alkaline Phosphatase Total Protein Albumin Lipase Urine Color Urine Appearance Urine pH Ur Specific [place] Urine Protein Urine Glucose (UA) Urine Ketones Ur Blood (Man) Urine Nitrate Urine Bilirubin Urine Urobilinogen Add Ur Microanalysis Leukocyte Esterase Rfl Urine RBC Urine WBC Urine WBC Clumps Ur Squamous Epith Cells Urine Bacteria Urine Casts Urine Opiates Screen Urine Methadone Screen Ur Barbiturates Screen Ur Phencyclidine Scrn Ur Amphetamine Screen U Benzodiazepines Scrn Urine Cocaine Screen U Cannabinoids Screen Ethyl Alcohol Influenza A (RT-PCR) Influenza B (RT-PCR) RSV (RT-PCR) SARS-CoV-2 RNA (RT-PCR) Quality VTE Prophylaxis VTE prophylaxis: pharmacologic ordered (Lovenox 40 mg subQ daily.)
[2025-02-02 07:50] VITALS: O2SAT 93
[2025-02-02 08:00] VITALS: PULSE 68
[2025-02-02] MEDS: ACETAMINOPHEN 325 MG TABLET 650 MG PO (10:10)
[2025-02-02] MEDS: ENOXAPARIN 40 MG/0.4 ML SYRINGE SUB-Q (10:12)
[2025-02-02] MEDS: ASPIRIN 81 MG ENTERIC TABLET PO (10:17)
[2025-02-02 12:00] VITALS: PULSE 79
--- NOTE | 2025-02-02 12:59 | P.DS_ITS ---
DS: Admitting Diagnosis Discharge Date 02/02/2025 Admitting Diagnosis Seizure, UTI DS: Discharge Diagnosis Discharge Diagnosis (1) Breakthrough seizure: Code(s): G40.919 - Epilepsy, unspecified, intractable, without status epilepticus Status: Acute (2) Abnormal urinalysis: Code(s): R82.90 - Unspecified abnormal findings in urine Status: Acute (3) Acute kidney injury: Code(s): N17.9 - Acute kidney failure, unspecified Status: Acute (4) Major depressive disorder with current active episode: Qualifiers: Major depression episode severity: moderate Major depression recurrence: unspecified whether recurrent Qualified Code(s): F32.1 - Major depressive disorder, single episode, moderate Code(s): F32.9 - Major depressive disorder, single episode, unspecified Status: Acute DS: Summary Hospital Course Reason for hospitalization: Seizure Hospital Course: 69-year-old female with a past medical history of seizure disorder who presented to the ER after having a witnessed seizure while riding in the back of the car. Patient was added L this convention for the past 3 days and is in the area visiting from [facility]. Patient takes lamotrigine 200 mg p.o. b.i.d. for seizures. EMS was called and patient received 10 mg of IM Versed and then an IV was placed after which time she received another 5 mg of IV Versed. On arrival to the ER the patient was sedated and could not provide any information. Patient has not been using any drugs and her friends denied patient drinking alcohol during their trip. Patient's alcohol level was negative in the ER and the patient's urine drug screen was only positive for benzodiazepines which she received in route to the hospital. The patient's friends report that they had had a very long weekend and they are all exhausted. The patient states that she does not know the names of her antihypertensives. At the time my evaluation she arouses easily to verbal stimuli but is not the best historian. She has had seizures since 1996. She had 1 seizure that was bad enough 1 time that she fell and poked her eye out with her home thumb nail. She denies any headaches, fevers, chills, cough, congestion or urinary symptoms at the time of my evaluation. The patient reported to nursing staff that she has been depressed recently. She has been having fleeting thoughts of self-harm but has no plan. She is aware that she is depressed but is not discuss this with her primary care provider. Source of information is patient who is a relatively poor historian and ER physician report/record and nursing report. No external records or past medical records available for my review. There is no contact information on the patient's family or friends available to provide any other history. EMS records are not yet in the system for my review. On 02/02, patient is A&O x4 and ambulatory without any difficulties. She reports that she has periodically breakthrough seizures every 4 months and returns to baseline within a few hours. Primary care physician is aware of this and continues her on lamotrigine 200 mg twice daily. She is not from this area and would like to be discharged home as she would not have a ride after her friends leave. Patient is hemodynamically stable with stable blood work, vitals and physical exam. She reported depressive complaints to overnight provider, but denies any SI/HI. Patient was considered for starting antidepressant but given that patient is not from this area, we will have her follow-up with her PCP in the outpatient setting regarding starting any medications. Patient is amenable to this plan and would like to be discharged at this time. Plan for discharge home with continuation of lamotrigine 200 mg p.o. b.i.d. Status at Discharge Functional status at discharge: independent ambulation Overall status at discharge: patient is back to baseline Time Spent with Patient Time attestation: Total time spent providing and/or coordinating discharge 40services: Exam Narrative: Weight 84.7 kg BMI 33.1 Const: Other: Appears stated age, well-developed well-nourished, no acute distress HENMT: Other: Edentulous upper and lower jaw, mucous membranes are tacky, no oral pharyngeal erythema, no evidence of oral injury, head is normocephalic atraumatic Eyes: Other: Right pupil is reactive and of normal size, no scleral icterus or conjunctival pallor, 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 Speech is clear and fluent, cranial nerves 2-12 grossly intact. No gross motor deficits noted. Extrem: Other: No clubbing, cyanosis or edema Psych: Mental Status: mental status grossly normal Affect: normal affect DS: Data Data Completed and Pending Labs on day of discharge: Labs from last 24 hours 02/02/25 02/01/25 02/01/25 04:40 20:38 18:02 WBC 7.1 RBC 3.62 L Hgb 10.2 L Hct 32.7 L MCV 90.3 MCH 28.2 MCHC 31.2 L RDW 13.6 Plt Count 316 MPV 8.5 Immature Gran % (Auto) 0.3 Neut % (Auto) 67.6 Lymph % (Auto) 24.2 [place] % (Auto) 6.2 Eos % (Auto) 1.1 Baso % (Auto) 0.6 Lymph # (Auto) 1.71 [place] # (Auto) 0.4 Eos # (Auto) 0.1 Baso # (Auto) 0.0 Abs Immat Gran (auto) 0.02 Absolute Neuts (auto) 4.8 Absolute Nucleated RBC 0.000 Nucleated RBC % 0.0 Sodium 135 L Potassium 3.8 Chloride 105 Carbon Dioxide 25 Anion Gap 5 BUN 14 Creatinine 0.94 Estim Creat Clear Calc 51 Estimated GFR 59 Glucose 85 POC Capillary Glucose Lactic Acid 1.3 6.4 H* Calcium 8.7 Magnesium Total Bilirubin AST ALT Alkaline Phosphatase Total Protein Albumin Lipase Urine Color Dark yellow Urine Appearance Turbid H Urine pH 5.0 Ur Specific [place] 1.010 Urine Protein 1+ H Urine Glucose (UA) Negative Urine Ketones Negative Ur Blood (Man) Trace Urine Nitrate Positive H Urine Bilirubin Negative Urine Urobilinogen 0.2 Add Ur Microanalysis Reviewed Leukocyte Esterase Rfl 3+ H Urine RBC 0-2 Urine WBC >100 H Urine WBC Clumps Present H Ur Squamous Epith Cells None seen Urine Bacteria Rare Urine Casts 6-10 Urine Opiates Screen Negative Urine Methadone Screen Negative Ur Barbiturates Screen Negative Ur Phencyclidine Scrn Negative Ur Amphetamine Screen Negative U Benzodiazepines Scrn Positive A Urine Cocaine Screen Negative U Cannabinoids Screen Negative Ethyl Alcohol Influenza A (RT-PCR) Influenza B (RT-PCR) RSV (RT-PCR) SARS-CoV-2 RNA (RT-PCR) 02/01/25 02/01/25 17:59 17:54 WBC 6.6 RBC 3.93 L Hgb 11.1 L Hct 35.7 L MCV 90.8 MCH 28.2 MCHC 31.1 L RDW 13.7 Plt Count 364 MPV 8.5 Immature Gran % (Auto) 0.6 H Neut % (Auto) 57.2 Lymph % (Auto) 32.4 [place] % (Auto) 6.7 Eos % (Auto) 2.0 Baso % (Auto) 1.1 Lymph # (Auto) 2.14 [place] # (Auto) 0.4 Eos # (Auto) 0.1 Baso # (Auto) 0.1 Abs Immat Gran (auto) 0.04 H Absolute Neuts (auto) 3.8 Absolute Nucleated RBC 0.000 Nucleated RBC % 0.0 Sodium 138 Potassium 3.5 Chloride 104 Carbon Dioxide 17 L Anion Gap 17 H BUN 18 H Creatinine 1.17 H Estim Creat Clear Calc 42 Estimated GFR 46 L Glucose 125 H POC Capillary Glucose 136 H Lactic Acid Calcium 9.0 Magnesium 1.9 Total Bilirubin 0.3 AST 40 H ALT 33 Alkaline Phosphatase 54 Total Protein 7.1 Albumin 4.3 Lipase 120 Urine Color Urine Appearance Urine pH Ur Specific [place] Urine Protein Urine Glucose (UA) Urine Ketones Ur Blood (Man) Urine Nitrate Urine Bilirubin Urine Urobilinogen Add Ur Microanalysis Leukocyte Esterase Rfl Urine RBC Urine WBC Urine WBC Clumps Ur Squamous Epith Cells Urine Bacteria Urine Casts Urine Opiates Screen Urine Methadone Screen Ur Barbiturates Screen Ur Phencyclidine Scrn Ur Amphetamine Screen U Benzodiazepines Scrn Urine Cocaine Screen U Cannabinoids Screen Ethyl Alcohol < 10 Influenza A (RT-PCR) Negative Influenza B (RT-PCR) Negative RSV (RT-PCR) Negative SARS-CoV-2 RNA (RT-PCR) Negative Discharge Plan Discharge Attending physician on discharge: Hitesh Valle Consulting providers: Sotero Herron Discharging Clinician: Sotero Herron Anticipated Discharge Date/Time: 02/02/25 12:54 Patient Disposition: Home Activity: no straining and no driving Diet: heart healthy Discharge Instructions: Discharge disposition: Home Take medications as prescribed. You will be prescribed a 5 day course of Augmentin for suspected Urinary Tract Infection. You will be contacted regarding pending results in relation to your UTI. Monitor blood pressures Take caution while standing, rising, or moving Change positions slowly taking a break between each position change If you standing feel dizzy sit back down and take a break Encouraged to continue with yearly vaccinations Return to the emergency department if he developed sudden shortness of breath, chest pain, nausea, vomiting, upset stomach or intractable diarrhea Return to the emergency department if you develop fever greater than 101.5 Follow-up with the primary care physician within 1-2 weeks. Thank you for choosing [facility] for your healthcare needs Patient Instructions: Antibiotic Form Patient Language: Haitian Stand Alone Forms: General Discharge Information Follow-up/Referrals: UNKNOWN,DOCTOR [Primary Care Provider] - Discharge Medications: New amoxicillin-pot clavulanate 875-125 mg tablet 1 tablet PO Q12H 5 Days Qty: 10 0RF Continued lamotrigine [Lamictal] 200 mg tablet 200 mg PO BID Date of admission: 02/01/25 19:24 Primary Care Provider: UNKNOWN,DOCTOR Admitting Provider: Greta Garcia Attending physician on admission: Greta Garcia Condition: Stable Quality VTE Prophylaxis VTE prophylaxis: pharmacologic ordered (Lovenox 40 mg subQ daily.)
== END 2025-02-02 13:35 | disposition home or self-care (01) ==
LOC: ANHED 19:37 → ANH2MED 02-02 06:52 → ANH3MEDSUR 02-03 13:52
PROVIDERS: Admitting Provider Internal Medicine; Emergency Provider Emergency Medicine; Visit Provider Family Medicine
DX: G40.919 Epilepsy, unspecified, intractable, without status epilepticus (principal); R82.90 Unspecified abnormal findings in urine; N17.9 Acute kidney failure, unspecified; F32.1 Major depressive disorder, single episode, moderate; I10 Essential (primary) hypertension; Z11.59 Encounter for screening for other viral diseases
CPT/HCPCS: 36415; 70450; 71045; 80048; 80053; 80307; 81001; 82077; 82948; 83605; 83690; 83735; 85025; 87086; 87637; 93005; 96361; 96365; 96367; 96372; 99285; A9270; G0378; J0696; J1650; J1953; J7030; J7120